=== PATIENT | female | born 2000 | race Caucasian/White ===

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

== ENCOUNTER 2023-09-30 10:53 | Outpatient (CLI) | payer BC | END 2023-09-30 10:54 | disposition home or self-care (01) | LOC: BICRAD 10:53 | PROVIDERS: ATTEND Pediatrics Pediatric Rheumatology | DX: M45.8 Ankylosing spondylitis sacral and sacrococcygeal region (principal) | CPT/HCPCS: 70330 ==